=== PATIENT | male | born 1945 ===

== ENCOUNTER 2019-05-08 13:40 | Outpatient (CLI) | payer OTHER ==
--- NOTE | 2019-05-08 14:45 | ULT ---
LEFT LOWER EXTREMITY VENOUS ULTRASOUND: 05/08/19 HISTORY: Left leg swelling/edema for three weeks. TECHNIQUE: Multiplanar wolf scale and color Doppler images are obtained in a left lower extremity venous ultraso und. Spectral analysis of the Doppler waveforms were performed. FINDINGS: The left common femoral vein, profunda femoral vein, superficial femoral vein, and popliteal vein are normal in appearance without visible thrombus. These vessels demonstrate normal compression, flow an d augmentation. The posterior tibial vein and greater saphenous vein are also patent. IMPRESSION: No evidence of DVT. POS: C
== END 2019-05-08 13:41 | disposition home or self-care (01) ==
LOC: BICULT 13:40
DX: I87.2 Venous insufficiency (chronic) (peripheral) (principal)